=== PATIENT | male | born 1930 | race Caucasian/White ===

== ENCOUNTER 2019-12-28 16:11 | Inpatient (IN) | payer OTHER ==
[~2019-12-28] VITALS: Ht 172.7 cm; Wt 67.6 kg
[2019-12-28 16:11] VITALS: BP 112/54
[2019-12-28] MEDS ORDERED: IMIPRAMINE HCL10 M2 PO (16:18)
[2019-12-28] MEDS ORDERED: DILTIAZEM ER240 MG PO (16:18)
[2019-12-28] MEDS ORDERED: LISINOPRIL40 MG PO (16:18)
[2019-12-28] MEDS ORDERED: HYDROCHLOROTH12.5 M1 PO (16:18)
[2019-12-28 17:16] LABS: ANION GAP 7 mmol/L (7-16); BUN 20 mg/dL (7-18); CALCIUM 8.9 mg/dL (8.5-10.1); CHLORIDE 97 mmol/L (98-107); CO2 29 mmol/L (21-32); CREATININE 1.4 mg/dL (0.7-1.3); GLUCOSE 214 mg/dL (74-106); SODIUM 133 mmol/L (136-145)
[2019-12-28 17:20] LABS: HEMATOCRIT 40.1 % (42.0-52.0); HEMOGLOBIN 13.6 gm/dL (14.0-18.0); MCH 33.8 pg (26.0-34.0); MCHC 33.8 g/dL (28.0-37.0); MCV 100.1 fL (80.0-100.0); PLATELET COUNT 145 thou/uL (150-400); RBC 4.01 mil/uL (4.50-6.00); RDW 12.7 % (10.5-14.5); WBC 5.8 thou/uL (4.0-11.0)
[2019-12-28 17:27] LABS: ALBUMIN 3.8 g/dL (3.4-5.0); SGOT 20 U/L (15-37); SGPT 21 U/L (30-65); TOTAL BILIRUBIN 0.8 mg/dL (<0.1-1.0); TOTAL PROTEIN 7.2 g/dL (6.4-8.2); TROPONIN-I <0.06 ng/mL (<0.06)
[2019-12-28 17:39] LABS: URINE BLOOD TRACE (Negative); URINE CLARITY CLEAR; URINE COLOR YELLOW; URINE GLUCOSE-RANDOM* TRACE (Negative); URINE KETONES 3+ (Negative); URINE LEUKOCYTES-REFLEX NEGATIVE (Negative); URINE NITRITE-REFLEX NEGATIVE (Negative); URINE PROTEIN (DIPSTICK) TRACE (Negative); URINE SPECIFIC GRAVITY >= 1.030 (1.005-1.035)
[2019-12-28 17:45] LABS: ICTOTEST (BILI CONFIRMATORY) Negative (Negative); URINE BILIRUBIN NEGATIVE (Negative)
[2019-12-28 17:49] LABS: ABSOLUTE NEUTROPHILS 5.2 thou/uL (1.4-8.2)
[2019-12-28 17:50] LABS: ANISOCYTOSIS 1+
[2019-12-28 20:25] LABS: TSH 1.01 uIU/mL (0.358-3.740)
--- NOTE | 2019-12-28 21:28 | NUR ---
ARIELLA DAUB COL[employer] MIXER AT BEDSIDE FOR [facility] GROUP TALKING TO PT AND DAUGHTER
[2019-12-29 04:00] VITALS: BP 101/62
[2019-12-29 05:43] LABS: HEMATOCRIT 38.8 % (42.0-52.0); HEMOGLOBIN 13.2 gm/dL (14.0-18.0); MCH 33.9 pg (26.0-34.0); MCHC 33.9 g/dL (28.0-37.0); PLATELET COUNT 141 thou/uL (150-400); RBC 3.88 mil/uL (4.50-6.00); RDW 12.9 % (10.5-14.5); WBC 6.1 thou/uL (4.0-11.0)
[2019-12-29 05:53] LABS: CALCIUM 8.8 mg/dL (8.5-10.1); MAGNESIUM 2.1 mg/dL (1.8-2.4); POTASSIUM 3.7 mmol/L (3.5-5.1)
[2019-12-29 08:41] LABS: ABSOLUTE NEUTROPHILS 4.1 thou/uL (1.4-8.2); PLATELET ESTIMATE NORMAL
--- NOTE | 2019-12-29 09:33 | NUR ---
PATIENT CONCERNED WITH NEED TO STAY FOR OBSERVATION. THIS RN CALLED AND SPOKE WITH HIS PCP-DR WINN AND RELAYED THE CT RESULTS. PATIENT ASKED TO SPEAK WITH DR WINN HIMSELF. PATIENT AND SON SPOKE WITH DR WINN WELL. HIS RECOMMENDATION IS TO STAY AT [facility] FOR AT LEAST 24 HOURS FOR OBSERVATION. PATIENT IS COMPLIANT AT THIS TIME. WILL CONTINUE TO MONITOR.
[2019-12-29 10:08] LABS: INR 1.1; PROTIME 11.2 Seconds (9.3-11.4)
[2019-12-29 10:25] VITALS: BP 120/62
--- NOTE | 2019-12-29 14:12 | NUR ---
MRI ASSESSMENT COMPLETED
--- NOTE | 2019-12-29 15:24 | 2DMMODE ---
[facility] [place] [address] 2 D/M-MODE ECHOCARDIOGRAM Name: JEMALGWENLÓPEZ J Room #: 170-7 ADM IN M.R.#: [id number] Admission: 12/28/19 Attend Phys: Jillian Callaway MD Discharge: Date of : 34 Report #: [id number] THIS REPORT FOR: cc: FAM - No family physician/PCP FAM - No family physician/PCP Carlos Celaya MD ~ APPROVED REPORT Study performed: 12/29/2019 14:25:07 EXAM: Comprehensive 2D, Doppler, and color-flow Echocardiogram Patient Location: Echo lab Room #: ER-7 Status: routine BSA: 1.79 HR: 95 bpm BP: 110/68 mmHg Rhythm: Sinus. Irregular. Other Information Study Quality: Adequate Technically limited study due to lung artifact, thin body habitus. Indications Fall/Brain bleed. Tachycardia. Hx: HTN. 2D Dimensions RVDd: 33.62 mm IVSd: 12.20 (7-11mm) LVOT Diam: 20.29 (18-24mm) LVDd: 45.64 mm PWd: 11.25 (7-11mm) Ascending Ao: 35.88 (22-36mm) LVDs: 32.89 (25-40mm) Aortic Root: 41.72 mm Volumes Left Atrial Volume (Systole) Single Plane 4CH: 26.93 mL Single Plane 2CH: 44.49 mL LA ESV Index: 21.00 mL/m2 Aortic Valve AoV Peak Ben.: 1.08 m/s AO Peak Gr.: 4.64 mmHg LVOT Max P.11 mmHg [facility] [address] [address] 2 D/M-MODE ECHOCARDIOGRAM Name: LÓPEZ ROSALES Room #: 170-7 [facility] IN [facility]#: [id number] Admission: 12/28/19 Attend Phys: Jillian Callaway, Discharge: Date of : 34 Report #: [id number] LVOT Max V: 0.88 m/s VIANEY Vmax: 2.64 cm2 Mitral Valve E/A Ratio: 0.4 MV Decel. Time: 259.30 ms MV E Max Ben.: 0.39 m/s MV A Ben.: 0.95 m/s MV PHT: 75.20 ms IVRT: 69.20 ms Pulmonary Vein P Vein S: 0.46 m/s P Vein D: 0.24 m/s P Vein S/D Ratio: 1.92 Tricuspid Valve TR Peak Ben.: 2.30 m/s RAP Estimate: 5.00 mmHg TR Peak Gr.: 21.20 mmHg PA Pressure: 26.00 mmHg Left Ventricle The left ventricle is normal size. There is normal LV segmental wall motion. There is normal left ventricular wall thickness. Left ventricular systolic function is normal. LVEF is 55%. Mild diastolic dysfunction is present (impaired relaxation pattern). Right Ventricle The right ventricle is normal size. The right ventricular systolic function is normal. Atria The left atrium size is normal. The right atrium size is normal. Aortic Valve The aortic valve is normal in structure. Mild aortic regurgitation. There is no aortic valvular stenosis. Mitral Valve The mitral valve is normal in structure. Mild mitral annular calcification. There is no mitral valve regurgitation noted. No evidence of mitral valve stenosis. Tricuspid Valve The tricuspid valve is normal in structure. Trace to mild tricuspid [facility] [address] [place] [address] 2 D/M-MODE ECHOCARDIOGRAM Name: LÓPEZ ROSALES Room #: 170-7 [facility] IN ..#: [id number] Admission: 12/28/19 Attend Phys: Jillian Callaway, Discharge: Date of : 34 Report #: [id number] regurgitation. Estimated PAP is 25-30mmHg. Pulmonic Valve Pulmonic valve is not well visualized. 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 The ascending aorta is normal in size. IVC is normal in size and collapses >50% with inspiration. Pericardium There is no pericardial effusion. <Conclusion> The left ventricle is normal size. LVEF is 55%. The aortic valve is normal in structure. Mild aortic regurgitation. The mitral valve is normal in structure. Mild mitral annular calcification. There is no mitral valve regurgitation noted. The tricuspid valve is normal in structure. Trace to mild tricuspid regurgitation. Estimated PAP is 25-30mmHg. There is no pericardial effusion. <ELECTRONICALLY SIGNED> By: Carlos Celaya MD 12/29/19 1523 1523 1523 Carlos Celaya MD /INF
[2019-12-29 16:30] VITALS: BP 118/63
[2019-12-29 16:35] VITALS: BP 131/60
[2019-12-29 21:00] VITALS: BP 123/67
[2019-12-30] VITALS (7 sets, daily range): BP systolic 95–135; BP diastolic 58–73
[2019-12-30 00:06] LABS: GLYCOHEMOGLOBIN (HGB A1C) 6.4 % (4.8-5.6)
--- NOTE | 2019-12-30 05:29 | NUR ---
PT ARRIVED FROM ER HAVING RECENT CVA AND FALL. COMPLETED ADMISSION, CARE PLAN, INTERVENTIONS, AND MED REC. EARLY IN THE EVENING PT WAS VERY IMPULSIVE AND ATTEMPTING TO GET OUT OF BED. REDIRECTED AND GAVE PRN ATIVAN. MADE DECISION TO MOVE PT FROM 349 TO 362 TO MONITOR MORE CLOSELY. PT HAS SLEPT ALL EVENING AFTER THE MOVE WITH OUT ISSUE. PRODUCTIVE COUGH BEING HEARD, NIH IN PROCESS, WELL CIWA'S PER DR. RHOADES. WILL CONTINUE TO MONITOR.
[2019-12-30 11:51] LABS: HEMATOCRIT 40.1 % (42.0-52.0); HEMOGLOBIN 13.3 gm/dL (14.0-18.0); MCH 33.2 pg (26.0-34.0); MCHC 33.1 g/dL (28.0-37.0); MCV 100.5 fL (80.0-100.0); PLATELET COUNT 144 thou/uL (150-400); RBC 3.99 mil/uL (4.50-6.00); WBC 5.9 thou/uL (4.0-11.0)
[2019-12-30 12:07] LABS: ALBUMIN 3.4 g/dL (3.4-5.0); CALCIUM 8.6 mg/dL (8.5-10.1); PHOSPHORUS 2.5 mg/dL (2.5-4.9); POTASSIUM 3.5 mmol/L (3.5-5.1); TOTAL BILIRUBIN 0.6 mg/dL (<0.1-1.0); TOTAL PROTEIN 6.9 g/dL (6.4-8.2)
[2019-12-30 12:30] LABS: CHOLESTEROL 122 mg/dL (<200); HDL CHOLESTEROL 51 mg/dL (>40); LDL CHOLESTEROL 60 mg/dL (<100); TC:HDL 2.4 Ratio (Not establshd); TRIGLYCERIDE 59 mg/dL (<150); VLDL 12 mg/dL (<40)
[2019-12-30 12:43] LABS: ANISOCYTOSIS 1+
[2019-12-30] MEDS ORDERED: PEPCID20 MG PO (15:52)
--- NOTE | 2019-12-30 15:53 | NUR ---
INITIAL ASSESSMENT/DISCHARGE NOTE: Received consult. SW reviewed chart and spoke with nursing and attending physician. Pt was admitted from home after a fall. Neuro surgery consulted. Per chart, pt does consume 3 cocktails per night. Pt may discharge home later today. SW met with pt at bedside. Introduced role of SW. Pt is alert/orientated x 4. Pt reports he lives at home alone in a condo. 2 steps to enter the home. No steps inside. Prior to admission, pt was independent with ADLs. No use of DME. Pt's PCP is Dr. Monster Yates. Pt states his family is supportive and involved in his care. Pt denies any discharge needs. Pt's family will provide transportation home when pt is discharged. No discharge needs identified at this time. SW is available to assist should needs arise.
--- NOTE | 2020-01-14 15:28 | EKG ---
[facility] [place] [address] ELECTROCARDIOGRAM REPORT Name: LÓPEZ ROSALES Room #: 362-P [facility] IN M.R.#: [id number] Admission: 12/28/19 Attend Phys: Jillian Callaway MD Discharge: 12/30/19 Date of : 34 Report #: [id number] THIS REPORT FOR: cc: PRASHANTH - Audrey family physician/PCP PRASHANTH - No family physician/PCP Toribio Trujillo MD ~ THIS REPORT FOR: //name// [facility] ED Test Date: 2019-12-28 Test Time: 17:47:24 Pat Name: LÓPEZ ROSALES Department: Room: 170 Gender: M Lan Engineer: khris : [id number] Requested By: Lisa Monahan Order Number: [id number] MD: Toribio Trujillo Measurements Intervals [place] Rate: 111 P: 9 AL: 166 QRS: -52 QRSD: 81 T: 72 QT: 337 QTc: 458 Interpretive Statements Sinus tachycardia with irregular rate with PACs Abnormal R-wave progression, late transition No previous ECG available for comparison Electronically Signed On 12-29-2019 8:21:58 [employer] SOFTWARE ENGINEER by Toribio Trujillo [email or web address] <ELECTRONICALLY SIGNED> By: Toribio Trujillo MD 12/29/19 0821 [id number] Toribio Trujillo MD /EPI
== END 2019-12-30 16:33 | disposition home or self-care (01) | DRG 85 ==
LOC: ER 16:11 → EROBS 19:41 → 3W 19:41 → EROBS 19:41 → 3W 12-29 16:29 → ENTRNSPT 12-30 16:18 → 3W 12-30 16:33
PROVIDERS: Emergency Medicine; Nurse Practitioner; Physician Assistant; Psychiatry & Neurology Neurology; ADMIT Internal Medicine
DX: S06.5X0A Traumatic subdural hemorrhage without loss of consciousness, initial encounter (principal); N17.0 Acute kidney failure with tubular necrosis; N17.9 Acute kidney failure, unspecified; W18.39XA Other fall on same level, initial encounter; I10 Essential (primary) hypertension; E11.65 Type 2 diabetes mellitus with hyperglycemia; E86.0 Dehydration; D47.3 Essential (hemorrhagic) thrombocythemia; R35.0 Frequency of micturition; G47.00 Insomnia, unspecified; K59.00 Constipation, unspecified; Z90.89 Acquired absence of other organs; Z79.899 Other long term (current) drug therapy; Y99.8 Other external cause status; Z88.0 Allergy status to penicillin; Y93.89 Activity, other specified; Y92.89 Other specified places as the place of occurrence of the external cause
CPT/HCPCS: 10779

== ENCOUNTER → 2020-11-07 | Outpatient (CLI) | payer OTHER ==
[~2020-11-07] MED LIST: DILTIAZEM ER240 MG PO; HYDROCHLOROTH12.5 M1 PO; IMIPRAMINE HCL10 M2 PO; LISINOPRIL40 MG PO; PEPCID20 MG PO
== END ==
LOC: SJCVC 10:19
PROVIDERS: ATTEND Nuclear Medicine Nuclear Cardiology
DX: M80.08XA Age-related osteoporosis with current pathological fracture, vertebra(e), initial encounter for fracture (principal); M54.9 Dorsalgia, unspecified; I10 Essential (primary) hypertension; Z85.46 Personal history of malignant neoplasm of prostate; Z88.0 Allergy status to penicillin; Z86.73 Personal history of transient ischemic attack (TIA), and cerebral infarction without residual deficits

== ENCOUNTER → 2020-11-13 | Outpatient (CLI) | payer OTHER ==
[~2020-11-13] VITALS: Ht 170.2 cm; Wt 55.3 kg
[~2020-11-13] MED LIST changes: +LIPITOR10 MG PO; +POTASSIUM20 PO; +TYLENOL325 M1 PO
[2020-11-13 08:45] VITALS: BP 136/68
[2020-11-13 09:23] LABS: HEMOGLOBIN 11.8 gm/dL (14.0-18.0); MCH 32.1 pg (26.0-34.0); MCHC 32.7 g/dL (28.0-37.0); MCV 98.1 fL (80.0-100.0); RBC 3.67 mil/uL (4.50-6.00); RDW 14.6 % (10.5-14.5); WBC 3.7 thou/uL (4.0-11.0)
[2020-11-13 09:34] LABS: CALCIUM 9.7 mg/dL (8.5-10.1)
== END | disposition home or self-care (01) ==
LOC: CATH 07:08
PROVIDERS: ATTEND Nuclear Medicine Nuclear Cardiology
DX: M54.9 Dorsalgia, unspecified (principal); M80.08XA Age-related osteoporosis with current pathological fracture, vertebra(e), initial encounter for fracture; I10 Essential (primary) hypertension; Z98.890 Other specified postprocedural states; Z79.899 Other long term (current) drug therapy; Z85.46 Personal history of malignant neoplasm of prostate; Z86.73 Personal history of transient ischemic attack (TIA), and cerebral infarction without residual deficits; Z88.8 Allergy status to other drugs, medicaments and biological substances

== ENCOUNTER → 2020-11-21 | Outpatient (CLI) | payer OTHER | LOC: MRI 12:39 | PROVIDERS: ATTEND Nuclear Medicine Nuclear Cardiology | DX: M54.9 Dorsalgia, unspecified (principal); Z98.890 Other specified postprocedural states ==

== ENCOUNTER → 2020-11-22 | Outpatient (CLI) | payer OTHER ==
[~2020-11-22] VITALS: Ht 170.2 cm; Wt 55.3 kg
[2020-11-22 07:10] VITALS: BP 155/67
--- NOTE | 2020-11-22 10:06 | NUR ---
NO COMPLICATIONS NOTED FROM [facility]. NO BLEEDING AT SITE. PT VERBALIZES UNDERSTANDING. WILL CONTINUE TO MONITOR. VSS.
== END | disposition home or self-care (01) ==
LOC: CATH 06:28
PROVIDERS: ATTEND Nuclear Medicine Nuclear Cardiology
DX: M54.9 Dorsalgia, unspecified (principal); M80.08XA Age-related osteoporosis with current pathological fracture, vertebra(e), initial encounter for fracture; I10 Essential (primary) hypertension; Z85.46 Personal history of malignant neoplasm of prostate; Z98.890 Other specified postprocedural states; Z79.899 Other long term (current) drug therapy; Z88.0 Allergy status to penicillin

== ENCOUNTER → 2020-12-19 | Outpatient (CLI) | payer OTHER | LOC: SJCVC 13:38 | PROVIDERS: ATTEND Nuclear Medicine Nuclear Cardiology | DX: M80.08XG Age-related osteoporosis with current pathological fracture, vertebra(e), subsequent encounter for fracture with delayed healing (principal); I10 Essential (primary) hypertension; Z85.46 Personal history of malignant neoplasm of prostate; Z86.73 Personal history of transient ischemic attack (TIA), and cerebral infarction without residual deficits; Z98.890 Other specified postprocedural states; Z88.0 Allergy status to penicillin; Z79.899 Other long term (current) drug therapy ==